=== PATIENT | male | born 1945 | race American Indian/Alaskan Native ===

== ENCOUNTER 2018-04-09 12:27 | Emergency (ER) | payer SELFPAY ==
--- NOTE | 2018-04-09 14:37 | Emergency Department Report ---
ED General Adult HPI - General Chief complaint: Chest Pain Stated complaint: CHEST PAIN Time Seen by Provider: 04/09/18 14:12 Source: patient, EMS Mode of arrival: Stretcher Limitations: Altered Mental Status - History of Present Illness Initial comments: Patient is a 72-year-old male past medical history of coronary stents who presents with chest and abdominal pain. Patient states that pain is severe and nothing makes the pain better and nothing makes it worse. He says the pain is located in the left side of his chest and abdomen as an achy type of pain. Severity scale (0 -10): 10 - Related Data Allergies Allergy/AdvReac Type Severity Reaction Status Date / Time meperidine [From Demerol] AdvReac Rash Verified 04/09/18 13:38 Penicillins AdvReac Rash Verified 04/09/18 13:38 simvastatin [From Zocor] AdvReac Rash Verified 04/09/18 13:38 ED Review of Systems ROS: Stated complaint: CHEST PAIN Other details as noted in HPI ED Past Medical Hx - Past Medical History Hx Psychiatric Treatment: Yes - Surgical History Hx Coronary Stent: Yes (3 stents) Additional Surgical History: back surgery - Social History Smoking Status: Never Smoker Substance Use Type: None ED Physical Exam - General Limitations: Altered Mental Status General appearance: alert, in no apparent distress - Head Head exam: Present: atraumatic, normocephalic - Eye Eye exam: Present: normal appearance - ENT ENT exam: Present: mucous membranes moist - Neck Neck exam: Present: normal inspection - Respiratory Respiratory exam: Present: normal lung sounds bilaterally. Absent: respiratory distress - Cardiovascular Cardiovascular Exam: Present: regular rate, normal rhythm. Absent: systolic murmur, diastolic murmur, rubs, gallop - GI/Abdominal GI/Abdominal exam: Present: soft, normal bowel sounds - Rectal Rectal exam: Present: deferred - Extremities Exam Extremities exam: Present: normal inspection - Back Exam Back exam: Present: normal inspection - Neurological Exam Neurological exam: Present: alert, oriented X3 - Psychiatric Psychiatric exam: Present: normal affect, normal mood - Skin Skin exam: Present: warm, dry, intact, normal color. Absent: rash ED Course Vital Signs 04/09/18 04/09/18 04/09/18 13:13 13:14 13:16 Temperature Pulse Rate 78 77 80 Respiratory 18 17 17 Rate Blood Pressure 170/85 170/85 O2 Sat by Pulse 98 96 97 Oximetry 04/09/18 04/09/18 04/09/18 13:18 13:20 13:22 Temperature Pulse Rate 76 77 80 Respiratory 13 24 25 H Rate Blood Pressure 170/85 170/85 170/85 O2 Sat by Pulse 97 97 96 Oximetry 04/09/18 04/09/18 04/09/18 13:24 13:25 13:26 Temperature 98.3 F Pulse Rate 86 77 Respiratory 20 16 Rate Blood Pressure 170/85 170/85 170/85 O2 Sat by Pulse 98 96 Oximetry 04/09/18 04/09/18 04/09/18 13:28 13:30 13:32 Temperature Pulse Rate Respiratory Rate Blood Pressure 170/85 148/102 148/102 O2 Sat by Pulse 98 97 98 Oximetry 04/09/18 04/09/18 04/09/18 13:34 14:01 14:23 Temperature Pulse Rate Respiratory Rate Blood Pressure 148/102 161/82 161/82 O2 Sat by Pulse 97 87 Oximetry 04/09/18 16:11 Temperature Pulse Rate Respiratory 16 Rate Blood Pressure O2 Sat by Pulse Oximetry ED Medical Decision Making - Lab Data Result diagrams: 04/09/18 14:50 04/09/18 14:50 Lab Results 04/09/18 04/09/18 04/09/18 Range/Units 14:50 14:50 14:53 WBC 13.3 H (4.5-11.0) K/mm3 RBC 4.64 (3.65-5.03) M/mm3 Hgb 13.1 (11.8-15.2) gm/dl Hct 40.0 (35.5-45.6) % MCV 86 (84-94) fl MCH 28 (28-32) pg MCHC 33 (32-34) % RDW 17.0 H (13.2-15.2) % Plt Count 348 (140-440) K/mm3 Lymph % (Auto) 11.8 L (13.4-35.0) % [place] % (Auto) 4.7 (0.0-7.3) % Eos % (Auto) 0.1 (0.0-4.3) % Baso % (Auto) 0.4 (0.0-1.8) % Lymph # 1.6 (1.2-5.4) K/mm3 [place] # 0.6 (0.0-0.8) K/mm3 Eos # 0.0 (0.0-0.4) K/mm3 Baso # 0.0 (0.0-0.1) K/mm3 Seg Neutrophils % 83.0 H (40.0-70.0) % Seg Neutrophils # 11.1 H (1.8-7.7) K/mm3 Sodium 139 (137-145) mmol/L Potassium 3.5 L (3.6-5.0) mmol/L Chloride 102.9 (98-107) mmol/L Carbon Dioxide 21 L (22-30) mmol/L Anion Gap 19 mmol/L BUN 8 L (9-20) mg/dL Creatinine 0.8 (0.8-1.5) mg/dL Estimated GFR > 60 ml/min BUN/Creatinine Ratio 10 % Glucose 131 H (75-100) mg/dL Calcium 9.8 (8.4-10.2) mg/dL Total Bilirubin 0.70 (0.1-1.2) mg/dL AST 15 (5-40) units/L ALT 7 (7-56) units/L Alkaline Phosphatase 103 (35-129) units/L Troponin T 0.012 (0.00-0.029) ng/mL Total Protein 8.6 H (6.3-8.2) g/dL Albumin 4.4 (3.9-5) g/dL Albumin/Globulin Ratio 1.0 % - EKG Data -: EKG Interpreted by Dc - EKG Data 04/09/18 19:00 EKG shows sinus rhythm left bundle branch block no ST segment elevation or T- wave inversion. - Radiology Data Radiology results: report reviewed, image reviewed FINAL REPORT EXAM: CT ABDOMEN PELVIS WO CON HISTORY: lower abdominal pain TECHNIQUE: Spiral CT scanning of the abdomen and pelvis. No oral or IV contrast administered. Multiplanar reformations. PRIORS: None. FINDINGS: Abdomen: Examination limited due to lack of contrast administration. Visualized lung bases grossly unremarkable. Gallstone noted without significant pericholecystic fluid collection. Liver grossly unremarkable. Spleen grossly unremarkable. Pancreas grossly unremarkable. 4-5 mm calcification right renal lower pole and punctate, possible papillary calcification in left renal lower pole without significant hydronephrosis. Rounded hypodensity in the right kidney lower pole measures approximately 1.5 cm. Adrenal glands grossly unremarkable. Pelvis: Small umbilical hernia containing fat and some nondistended or strangulated small-bowel loops. Mild diverticular change scattered in the colon. Remainder of visualized bowel grossly unremarkable, without evidence of mechanical bowel obstruction. Appendix is not confidently identified. No significant free peritoneal fluid or loculated fluid collection. Diffuse aortoiliac calcification and mild ectatic change in the abdominal aorta without aneurysmal dilatation. Degenerative changes in thoracolumbar spine. Extensive postsurgical change and posterior fixation hardware also in the thoracolumbar spine. Status post left total hip arthroplasty grossly intact and normally located. Penile implants incidentally noted. IMPRESSION: 1. Cholelithiasis. 2. Nonobstructing, bilateral renal calcifications. No significant hydronephrosis. Right renal hypodensity possibly representing cyst, but nonspecific. Correlation with renal ultrasound may be confirmatory, as clinically indicated. 3. Small umbilical hernia containing some bowel loops, and mild diverticulosis. 4. Postsurgical and degenerative change Wrist x-ray: Shows no acute cardiopulmonary disease - Medical Decision Making Chief medical diagnosis: Chest wall pain 2/2 angina Differential medical diagnosis: Gastroenteritis, GERD TROPONIN, CT scan, IV pain medicine, oral aspirin, EKG, Issues lab work is unremarkable troponin is negative EKG unremarkable. Patient is still requesting for multiple IV doses of pain medicine Critical care attestation.: If time is entered above; I have spent that time in minutes in the direct care of this critically ill patient, excluding procedure time. ED Disposition Clinical Impression: Chest wall pain, Left sided abdominal pain Disposition: OP ADMIT IP TO THIS HOSP Is pt being admited?: No Does the pt Need Aspirin: No Condition: Stable Instructions: Chest Pain (ED) Referrals: PRIMARY CARE,MD [Primary Care Provider] - 3-5 Days
[2018-04-09] MEDS ORDERED: MORPHINE IV ONE (14:39)
[2018-04-09] MEDS ORDERED: MORPHINE IM ONE (14:45)
[2018-04-09 15:08] LABS: Basophils % (Auto) 0.4 % (0.0-1.8); Eosinophils % (Auto) 0.1 % (0.0-4.3); Hemoglobin 13.1 gm/dl (11.8-15.2); Lymphocytes # (Auto) 1.6 K/mm3 (1.2-5.4); Lymphocytes % (Auto) 11.8 % (13.4-35.0); Mean Corpuscular HGB Conc 33 % (32-34); Mean Corpuscular Hemoglobin 28 pg (28-32); Mean Corpuscular Volume 86 fl (84-94); Monocytes # (Auto) 0.6 K/mm3 (0.0-0.8); Monocytes % (Auto) 4.7 % (0.0-7.3); Platelet Count 348 K/mm3 (140-440); Red Blood Count 4.64 M/mm3 (3.65-5.03)
[2018-04-09 15:21] LABS: Alanine Aminotransferase 7 units/L (7-56); Albumin 4.4 g/dL (3.9-5); BUN/Creatinine Ratio 10; Blood Urea Nitrogen 8 mg/dL (9-20); Calcium 9.8 mg/dL (8.4-10.2); Hemolysis Index 5
--- NOTE | 2018-04-09 15:53 | XRay Report ---
FINAL REPORT EXAM: XR CHEST 1V AP HISTORY: chest pain TECHNIQUE: Single, portable chest x-ray. PRIORS: None. FINDINGS: Cardiac and mediastinal silhouette within normal limits. Lungs are normally expanded. No significant vascular congestion. No focal consolidation or apparent pneumothorax. Bony thorax grossly unremarkable. IMPRESSION: 1. No acute findings.
[2018-04-09] MEDS ORDERED: XANAX PO ONE (16:15)
[2018-04-09] MEDS ORDERED: DILAUDID IV ONE (17:31)
[2018-04-09] MEDS ORDERED: ZOFRAN IV ONE (17:32)
--- NOTE | 2018-04-09 18:07 | Cat Scan Report ---
FINAL REPORT EXAM: CT ABDOMEN PELVIS WO CON HISTORY: lower abdominal pain TECHNIQUE: Spiral CT scanning of the abdomen and pelvis. No oral or IV contrast administered. Multiplanar reformations. PRIORS: None. FINDINGS: Abdomen: Examination limited due to lack of contrast administration. Visualized lung bases grossly unremarkable. Gallstone noted without significant pericholecystic fluid collection. Liver grossly unremarkable. Spleen grossly unremarkable. Pancreas grossly unremarkable. 4-5 mm calcification right renal lower pole and punctate, possible papillary calcification in left renal lower pole without significant hydronephrosis. Rounded hypodensity in the right kidney lower pole measures approximately 1.5 cm. Adrenal glands grossly unremarkable. Pelvis: Small umbilical hernia containing fat and some nondistended or strangulated small-bowel loops. Mild diverticular change scattered in the colon. Remainder of visualized bowel grossly unremarkable, without evidence of mechanical bowel obstruction. Appendix is not confidently identified. No significant free peritoneal fluid or loculated fluid collection. Diffuse aortoiliac calcification and mild ectatic change in the abdominal aorta without aneurysmal dilatation. Degenerative changes in thoracolumbar spine. Extensive postsurgical change and posterior fixation hardware also in the thoracolumbar spine. Status post left total hip arthroplasty grossly intact and normally located. Penile implants incidentally noted. IMPRESSION: 1. Cholelithiasis. 2. Nonobstructing, bilateral renal calcifications. No significant hydronephrosis. Right renal hypodensity possibly representing cyst, but nonspecific. Correlation with renal ultrasound may be confirmatory, as clinically indicated. 3. Small umbilical hernia containing some bowel loops, and mild diverticulosis. 4. Postsurgical and degenerative change.
[2018-04-09] MEDS ORDERED: BABY ASPIRIN PO ONE (18:47)
[2018-04-09] MEDS ORDERED: LEVAQUIN 500MG/100ML 500 MG/100 ML BAG IV ONE (19:00)
--- NOTE | 2018-04-09 19:16 | History and Physical Report ---
Medications and Allergies Allergies Allergy/AdvReac Type Severity Reaction Status Date / Time meperidine [From Demerol] AdvReac Rash Verified 04/09/18 13:38 Penicillins AdvReac Rash Verified 04/09/18 13:38 simvastatin [From Zocor] AdvReac Rash Verified 04/09/18 13:38 Home Medications Medication Instructions Recorded Confirmed Last Taken Type Ciprofloxacin HCl [Ciprofloxacin 500 mg PO Q12H #12 tab 04/09/18 Unknown Rx TAB] Ibuprofen [Motrin] 800 mg PO Q8HR PRN #24 tablet 04/09/18 Unknown Rx Active Meds: Active Medications Levofloxacin/Dextrose (Levaquin 500mg/100ml) 500 mg in 100 mls @ 100 mls/hr IV ONCE ONE Stop: 04/09/18 19:59 Exam - Constitutional Vitals: Temp Pulse Resp BP Pulse Ox 98.3 F 77 16 161/82 87 04/09/18 13:25 04/09/18 13:25 04/09/18 16:11 04/09/18 14:23 04/09/18 14:23 Results - Labs CBC & Chem 7: 04/09/18 14:50 04/09/18 14:50 Labs: Abnormal lab results 04/09/18 04/09/18 Range/Units 14:50 14:50 WBC 13.3 H (4.5-11.0) K/mm3 RDW 17.0 H (13.2-15.2) % Lymph % (Auto) 11.8 L (13.4-35.0) % Seg Neutrophils % 83.0 H (40.0-70.0) % Seg Neutrophils # 11.1 H (1.8-7.7) K/mm3 Potassium 3.5 L (3.6-5.0) mmol/L Carbon Dioxide 21 L (22-30) mmol/L BUN 8 L (9-20) mg/dL Glucose 131 H (75-100) mg/dL Total Protein 8.6 H (6.3-8.2) g/dL
[2018-04-09 19:48] VITALS: BP 148/70
--- NOTE | 2018-04-09 20:25 | Emergency Department Report ---
Blank Doc - Documentation Documentation: I was contacted by radiologist Dr. Valencia for abnormal CT chest finding. Radiologist s is concerned for possible small pulmonary embolism. However the finding was equivocal due to a very small filling defect. Will need further investigation while on the hospital service.
--- NOTE | 2018-04-09 20:30 | Cat Scan Report ---
FINAL REPORT EXAM: CT ANGIO CHEST HISTORY: chest pain/ab pain TECHNIQUE: Spiral CTA of the chest after the uneventful administration of IV contrast. Multiplanar reformations. 100 mL Omnipaque IV. PRIORS: None. FINDINGS: Chest: Motion artifact limits examination somewhat. Short segment of heterogeneous or decreased enhancement noted in left interlobar pulmonary artery (series [id number]), which appears more discrete and suspicious for small filling defect on sagittal and coronal reformations. Mildly heterogeneous or incomplete enhancement in some bibasilar subsegmental pulmonary arteries peripherally, nonspecific. The main and remainder of bilateral proximal pulmonary arteries are normally opacified without significant endoluminal filling defects. Cardiac size within normal limits. Moderate coronary artery calcifications. No apparent aneurysm, pseudoaneurysm or aortic dissection. No significant lymph node enlargement or axillary adenopathy. Lungs show mild bullous and paraseptal emphysematous changes, with upper lobe predominance. Some patchy, ground-glass opacities in left lower lobe may represent atelectasis, postinflammatory change or scarring. No discrete parenchymal mass, focal consolidation or pleural effusions. No apparent pneumothorax. Gallstone noted without significant pericholecystic fluid collection. Remainder of visualized upper abdomen grossly unremarkable. Posterior fixation hardware partially visualized in thoracolumbar spine. IMPRESSION: 1. Heterogeneous or decreased enhancement in short segment of left interlobar pulmonary artery may be artifactual, but suspicious for small filling defect or pulmonary embolus. Clinical correlation and followup may be warranted. 2. No other evidence of large vessel or central pulmonary emboli. 3. No acute consolidation. 4. Coronary artery calcifications. 5. Cholelithiasis. Dr. Valencia discussed results with Dr. Dominguez on 09 April 2018 at approximately 2022 hours EST.
[2018-04-09] MEDS ORDERED: ELIQUIS PO SCH (22:00)
== END 2018-04-09 21:15 | disposition admitted as inpatient to this hospital (09) ==
LOC: ED 12:27
DX: R07.89 Other chest pain (principal); R10.32 Left lower quadrant pain; I20.9 Angina pectoris, unspecified; Z88.5 Allergy status to narcotic agent; Z88.0 Allergy status to penicillin; Z95.1 Presence of aortocoronary bypass graft; Z88.8 Allergy status to other drugs, medicaments and biological substances
CPT/HCPCS: 36415; 71045; 71275; 74176; 80053; 84484; 85025; 93005; 93010; 96374; 96375; 99285; J1170; J1956; J2270; J2405; Q9967